=== PATIENT | female | born 1970 | race Hispanic/Latino ===

== ENCOUNTER 2021-10-11 12:54 | Emergency (ER) | payer BC ==
--- OUTSIDE RECORDS SUMMARY | 2021-10-11 12:58 | XMS REPORT | Continuity of Care Document ---
:1970 Author Organization [facility] t Address [address] [place] [address] Care Team Providers Name Role Phone Shanna Cruz Primary Care Physician Nancy Attending Clinician Unavailable Palmer Attending Clinician Unavailable Jacqui RN, T Attending Clinician Unavailable Estuardo MCPHERSON Attending Clinician Unavailable Only, Db Test Attending Clinician Unavailable Slava PATTERSON Attending Clinician SLAVA Attending Clinician Unavailable Payers Payer Name Policy Type Policy Number Effective Date Expiration Date S ource Problems This patient has no known problems. Allergies, Adverse Reactions, Alerts Allergy Allergy Status Severity Reaction(s) Onset Inactive Treating Comm ents Source Name Type Date Date Clinician NO KNOWN Drug Active Univers ALLERGIE Class [facility] Cipro Adverse Active Info Not Common Reaction Available [facility] Social History Social Habit Start Date Stop Date Quantity Comments Source Exposure to Yes [facility] SARS-CoV-2 (event) Medica [facility] Branch Sex Assigned At [birth year] [facility] 00:00:00 00:00:00 [facility] Smoking Status Start Date Stop Date Source Unknown if ever smoked [facility] Medications Ordered Filled Start Stop Current Ordering Indication Dosage Frequency Signature Comments Components Source Medication Medication Date Date Medication? Clinician (SIG) Name Name No known No Univers medications [facility] No known No Univers medications [facility] No known No Univers medications ity [facility] No known No Univers medications ity [facility] No known No Univers medications ity [facility] Daily Multi Daily Multi Yes [place] as Common [place] directed [facility] Vitamin D3 Vitamin D3 Yes Tahira 1 capsule Common [place] [facility] Cyclobenzap Cyclobenzap 2020- No Tahira 1 tablet Common rine HCl rine HCl 12-18 [place] as needed Spirit 00:00 - CHI :00 [facility] Procedures This patient has no known procedures. Encounters Start End Encounter Admission Attending Care Care Encounter Source Date/Time Date/Time Type Type Clinicians Facility Department ID 2021-05-20 Out[place], STLMLC STLMLC [id number] Common 13:43:15 Tahira [address]5831 [facility] 2021-05-20 Outpatient [place], STLMLC STLMLC [id number] Common 12:07:56 Tahira 44504 [facility] 2021-05-20 Outpatient [place], STLMLC STLMLC [id number] Common 12:07:09 Tahira 36322 [facility] 2021-05-20 Outpatient [place], STLMLC STLMLC [id number] Common 11:39:11 Tahira 63589 [facility] 2021-05-20 Outpatient [place], STLMLC STLMLC [id number] Common 11:38:37 Tamra [address]87 [facility] 2020-12-31 2020-12-31 Letter AUGUSTIN Osman [id number] Univers 00:00:00 00:00:00 (Out) Laina TRISTAN [id number] it y of [facility] [id number] Santi as [id number] [address] 2020-12-31 2020-12-31 Telephone AUGUSTIN Marte [id number] Univers 00:00:00 00:00:00 Angelina TRISTAN [id number] it y of [facility] [id number] Santi as [id number] [address] 2020-12-302020-12-30 Laboratory Only, Ang Db Test [facility] [id number] Univers 11:47:13 12:02:13 Only Tan Pedersen [facility] [id number] itciara [facility] [id number] Santi as Jose?Blea [id number] [place] [address] [facility] 2020-12-30 2020-12-30 Outpatient R SLAVA [facility] [id number] Univers 11:45:00 11:45:00 TAN [facility] 2020-12-18 2020-12-18 Outpatient STLMLC STLMLC [id number] Common 00:00:00 00:00:00 [facility] 2020-04-29 2020-04-29 Outpatient STLMLC STLMLC [id number] Common 00:00:00 00:00:00 [facility] 2020-03-18 2020-03-18 Outpatient STLMLC STLMLC [id number] Common 00:00:00 00:00:00 [facility] 2019-12-17 2019-12-17 [facility] [id number] Common 10:00:00 10:00:00 t [facility] [address] [facility] 2019-12-14 2019-12-14 [facility] [id number] Common 14:43:00 14:43:00 t [facility] [employer] [facility] [address] [facility] 2019-12-12 2019-12-12 [facility] [id number] Common 15:20:00 15:20:00 [address] [facility] [address] [facility] 2017-09-20 2017-09-20 [facility] [id number] Common 12:53:00 12:53:[address] [facility] 2017-09-16 2017-09-16 [facility] [id number] Common 13:57:00 13:57:00 t [facility] [address] [facility] 2017-09-14 2017-09-14 [facility] [id number] Common 14:57:00 14:57:00 t [facility] [address] [facility] 2017-09-09 2017-09-09 Outpatient Laith Cristina [id number] Common 10:41:00 10:41:00 t [facility] [address] [facility] 2017-09-06 2017-09-06 Outpatient Laith Cristina [id number] Common 15:30:00 15:30:00 [address] [facility] [address] [facility] Results This patient has no known results.
[2021-10-11] MEDS ORDERED: NA CHLORIDE 0.9% 1,000 ML ONE (13:20)
[2021-10-11] MEDS ORDERED: ONDANSETRON 4 MG/2 ML VIAL ONE (13:20)
[2021-10-11] MEDS ORDERED: MORPHINE 4 MG/ML SYR ONE (13:20)
[2021-10-11 13:33] LABS: Absolute Lymphocytes (CBC) 2.1 K/uL (0.7-4.9); Hematocrit 45.6 % (36.0-45.0); MPV 8.9 fL (7.6-11.3); RBC Red Blood Cell Count 4.99 M/uL (3.86-4.86)
[2021-10-11 13:44] LABS: Albumin 3.4 g/dL (3.4-5.0); Bilirubin Total 0.2 mg/dL (0.2-1.0); Potassium 3.9 mmol/L (3.5-5.1); Protein, Total 6.8 g/dL (6.4-8.2)
[2021-10-11 14:22] LABS: Urine Blood Negative (Negative); Urine Glucose Negative (Negative); Urine Protein Negative (Negative); Urine Specific Gravity 1.025 (1.005-1.030); Urine pH 5.5 (5.0-7.0)
--- NOTE | 2021-10-11 14:37 | RAD REPORT ---
EXAM DESCRIPTION: CTAbdomen Pelvis W Contrast - 10/11/2021 2:24 pm CLINICAL HISTORY: Epigastric pain COMPARISON: Abdomen Pelvis W Contrast dated 01/27/2016 TECHNIQUE: CT of the abdomen and pelvis was performed with IV contrast. All CT scans are performed using dose optimization technique as appropriate and may include automated exposure control or mA/KV adjustment according to patient size. FINDINGS: Lower chest: No acute abnormality. Liver: No acute abnormality or suspicious lesions. Biliary: No biliary ductal dilatation. Stomach: No significant focal abnormality. Duodenum: No significant focal abnormality. Pancreas: No significant abnormality. Spleen: No significant abnormality. Adrenal: No suspicious lesions. Kidney/ureter: No hydronephrosis. No renal calculi. Bilateral renal lesions which are likely cysts. Retroperitoneum: No retroperitoneal adenopathy. Vascular: No aneurysm. Atherosclerosis. Bowel: No significant focal abnormality. No appendix identified. Peritoneum: No ascites or free air. Bladder: Grossly unremarkable. Reproductive: No adnexal masses. Hysterectomy. Bones: No acute fracture. Other: n/a IMPRESSION: No acute intra-abdominal or pelvic finding. A few incidental findings as noted above.
[2021-10-11 14:53] LABS: Urine Bacteria <20 /HPF (<20); Urine RBC NONE SEEN /HPF (NONE SEEN)
--- NOTE | 2021-10-11 15:48 | RAD REPORT ---
EXAM DESCRIPTION: CT - Head Brain Wo Cont - 10/11/2021 3:37 pm CLINICAL HISTORY: Parasthesia COMPARISON: No comparisons TECHNIQUE: All CT scans are performed using dose optimization technique as appropriate and may inclu de automated exposure control or mA/KV adjustment according to patient size. FINDINGS: No intracranial hemorrhage, hydrocephalus or extra-axial fluid collection.No areas of brai n edema or evidence of midline shift. Ethmoid air cell thickening. Mucosal thickening in the right maxillary sinus. The calvarium is intact . IMPRESSION: No acute intracranial abnormality. Mild paranasal sinus inflammatory disease.
--- NOTE | 2021-10-11 15:53 | ER ---
Nurse's Notes [facility] Name: Jie Gonzalez Age: 50 yrs Sex: Female : 1970 Arrival Date: 10/11/2021 Time: 12:57 Bed 6 Private MD: Tahira Cruz Diagnosis: Abdominal pain, unspecified;Diarrhea, unspecified;Paresthesia of skin Presentation: 10/11 13:00 Chief complaint: Patient states: I have been having this abdominal discomfort for 3 jg9 weeks now, last week I had diarrhea x1 week, and the last couple weeks the pain seems to be focused in the RUQ/LLQ region, and reports of tingling in face this morning. Coronavirus screen: Vaccine status: Patient reports being unvaccinated. Ebola Screen: Patient negative for fever greater than or equal to 101.5 degrees Fahrenheit, and additional compatible Ebola Virus Disease symptoms Patient denies exposure to infectious person. Patient denies travel to an Ebola-affected area in the 21 days before illness onset. Initial Sepsis Screen: Does the patient meet any 2 criteria? No. Patient's initial sepsis screen is negative. Does the patient have a suspected source of infection? No. Patient's initial sepsis screen is negative. Risk Assessment: Do you want to hurt yourself or someone else? Patient reports no desire to harm self or others. Onset of symptoms is unknown. 13:00 Method Of Arrival: Ambulatory jg9 13:00 Acuity: EDITH 3 jg9 Triage Assessment: 13:00 General: Appears uncomfortable, Behavior is calm, cooperative. Pain: Complains of pain jg9 in abdomen Pain currently is 5 out of 10 on a pain scale. EENT: No deficits noted. Neuro: No deficits noted. Cardiovascular: No deficits noted. Respiratory: No deficits noted. GI: Reports lower abdominal pain, upper abdominal pain, diarrhea. : No deficits noted. Derm: Reports red patches to upper hands and arms. Musculoskeletal: No deficits noted. 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 - Social history:: Smoking status: Patient reports the use of cigarette tobacco products, denies chronic smoking, but will smoke occasionally. Screenin:11 Abuse screen: Denies threats or abuse. Denies injuries from another. Nutritional jg9 screening: No deficits noted. Tuberculosis screening: No symptoms or risk factors identified. Fall Risk None identified. Assessment: 13:11 GI: Bowel sounds present X 4 quads. Abd is soft Abdomen is tender to palpation X 4 jg9 quads. 14:00 Reassessment: No changes from previously documented assessment. Patient and/or family jg9 updated on plan of care and expected duration. Pain level reassessed. Patient is alert, oriented x 3, equal unlabored respirations, skin warm/dry/pink. 15:15 Reassessment: No changes from previously documented assessment. Patient and/or family jg9 updated on plan of care and expected duration. Pain level reassessed. Patient is alert, oriented x 3, equal unlabored respirations, skin warm/dry/pink. Vital Signs: 13:00 BP 160 / 101; Pulse 98; Resp 20 S; Temp 98(O); Weight 136.08 kg; Height 5 ft. 5 in. jg9 (165.10 cm); Pain 5/10; 13:15 BP 136 / 78; Pulse 76; Resp 17 S; Pulse Ox 97% on R/A; jg9 15:13 BP 154 / 87; Pulse 78; Resp 17 S; Pulse Ox 96% ; jg9 13:00 Body Mass Index 49.92 (136.08 kg, 165.10 cm) jg9 ED Course: 12:57 Patient arrived in ED. as 12:58 Tahira Cruz is Private Physician. as 13:00 Arm band placed on right wrist. jg9 13:01 Soniya Ricci RN is Primary Nurse. jg9 13:02 Luciano Dacosta NP is PHCP. pm1 13:02 Guillermo Camacho MD is Attending Physician. pm1 13:08 Triage completed. jg9 13:09 PHCP role handed off by Luciano Dacosta NP en 13:09 Sita Martínez PA is PHCP. en 13:09 PHCP role handed off by Sita Martínez PA pm1 13:09 Luciano Dacosta NP is PHCP. pm1 13:11 Inserted saline lock: 20 gauge in right antecubital area, using aseptic technique. tp1 Blood collected. 13:11 Placed in gown. Bed in low position. Call light in reach. Side rails up X 1. tp1 13:11 Patient has correct armband on for positive identification. Bed in low position. Call jg9 light in reach. Side rails up X 1. 14:26 CT Abd/Pelvis - IV Contrast Only In Process Unspecified. EDMS 15:39 CT Head Brain wo Cont In Process Unspecified. EDMS 16:22 No provider procedures requiring assistance completed. jg9 16:23 IV discontinued. jg9 Administered Medications: 13:25 Drug: NS 0.9% 1000 ml Route: IV; Rate: 1 bolus; Site: right antecubital; jg9 16:23 Follow up: IV Status: Completed infusion; IV Intake: 1000ml jg9 13:26 Drug: Zofran (Ondansetron) 4 mg Route: IVP; Site: right antecubital; jg9 14:00 Follow up: Response: No adverse reaction jg9 13:28 Drug: morphine 4 mg Route: IVP; Infused Over: 4 mins; Site: right antecubital; jg9 14:00 Follow up: Response: No adverse reaction; Pain is decreased jg9 Medication: 13:11 VIS not applicable for this client. jg9 Intake: 16:23 IV: 1000ml; Total: 1000ml. jg9 Outcome: 15:52 Discharge ordered by MD. pm1 16:22 Discharged to home ambulatory. jg9 16:22 Condition: unchanged 16:22 Discharge instructions given to patient, Instructed on discharge instructions, follow up and referral plans. Demonstrated understanding of instructions, follow-up care, medications, Prescriptions given X 2. 16:24 Patient left the ED. jg9 Signatures: Dispatcher [employer] EDMS Codi Mendoza Patrick, NP SNAKER pm1 Bessie Coronado tp1 Soniya Ricci RN RN jg9 Sita Martínez PA PA en
--- NOTE | 2021-10-11 15:53 | EDPHYS ---
Physician Documentation [facility] Name: Jie Gonzalez Age: 50 yrs Sex: Female : 1970 Arrival Date: 10/11/2021 Time: 12:57 Bed 6 Private MD: Tahira Cruz ED Physician Guillermo Camacho HPI: 10/11 13:25 This 50 yrs old Female presents to ER via Ambulatory with complaints of pm1 Abdominal Pain, Back Pain, Weakness, Diarrhea. 13:25 The patient presents with abdominal pain in the epigastric area, in the upper abdomen. pm1 Onset: The symptoms/episode began/occurred 3 day(s) ago. The symptoms do not radiate. Associated signs and symptoms: Pertinent positives: diarrhea, Right low back pain, increased urination, nausea, Pertinent negatives: dysuria, headache, Generalized weakness, vomiting, chest pain, shortness of breath. The symptoms are described as achy. Modifying factors: The symptoms are alleviated by nothing, the symptoms are aggravated by nothing. Severity of pain: in the emergency department the pain is unchanged. The patient has not experienced similar symptoms in the past. The patient has not recently seen a physician. 50-year-old patient presents to the ER with complaints of abdominal pain, nausea, and diarrhea for the past 3 days. Patient reports decreased p.o. intake of food and liquids and has resulting generalized weakness. 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 - Social history:: Smoking status: Patient reports the use of cigarette tobacco products, denies chronic smoking, but will smoke occasionally. ROS: 13:25 Cardiovascular: Negative for chest pain, palpitations, and edema, Respiratory: Negative pm1 for shortness of breath, cough, wheezing, and pleuritic chest pain. 13:25 MS/Extremity: Negative for injury and deformity, Skin: Negative for injury, rash, and discoloration. 13:25 Constitutional: Positive for poor PO intake, Negative for body aches, fever. 13:25 Abdomen/GI: Positive for abdominal pain, nausea, diarrhea, of the epigastric area, right upper quadrant and left upper quadrant, Negative for vomiting. 13:25 Back: Positive for of the right low back. 13:25 : Positive for Increased urination. 13:25 Neuro: Positive for Generalized weakness. 13:25 All other systems are negative. 13:25 Skin: Positive for rash, of the right hand, left hand and left foot. pm1 Exam: 13:25 Constitutional: This is a well developed, well nourished patient who is awake, alert, pm1 and in no acute distress. Head/Face: Normocephalic, atraumatic. 13:25 Back: No spinal tenderness. No costovertebral tenderness. Full range of motion. MS/ Extremity: Pulses equal, no cyanosis. Neurovascular intact. Full, normal range of motion. 13:25 Cardiovascular: Exam negative for acute changes, Rate: normal, Rhythm: regular, Pulses: no pulse deficits are appreciated. 13:25 Respiratory: Exam negative for acute changes, respiratory distress, shortness of breath. 13:25 Abdomen/GI: Inspection: obese Palpation: soft, in all quadrants, mild abdominal tenderness, in the epigastric area and right upper quadrant. 13:25 Skin: Appearance: normal except for affected area, on the left and right hand and dorsum of left foot, Nonspecific macular rash to dorsal aspect of left hand and left foot. 13:25 Neuro: Exam negative for acute changes, Orientation: is normal, Mentation: is normal, Motor: is normal, moves all fours. Vital Signs: 13:00 BP 160 / 101; Pulse 98; Resp 20 S; Temp 98(O); Weight 136.08 kg; Height 5 ft. 5 in. jg9 (165.10 cm); Pain 5/10; 13:15 BP 136 / 78; Pulse 76; Resp 17 S; Pulse Ox 97% on R/A; jg9 15:13 BP 154 / 87; Pulse 78; Resp 17 S; Pulse Ox 96% ; jg9 13:00 Body Mass Index 49.92 (136.08 kg, 165.10 cm) 9 MDM: 13:05 Patient medically screened. pm1 13:30 Data reviewed: vital signs. Data interpreted: Pulse oximetry: on room air is 97 %. pm1 Interpretation: normal. 15:14 Counseling: I had a detailed discussion with the patient and/or guardian regarding: the pm1 historical points, exam findings, and any diagnostic results supporting the discharge/admit diagnosis, lab results, radiology results, the need for outpatient follow up. 15:14 ED course: Patient reports paresthesia present to right side of her body that has been pm1 going on for 3 days with her diarrhea and generalized weakness. Negative neuro examination. Will order CT head. 16:26 Counseling: I had a detailed discussion with the patient and/or guardian regarding: pm1 radiology results, CT results and need to follow up with a PCP and/GI for further tests and evaluation such as EGD. Patient wanted to be admitted to the hospital for further tests like the EGD and I informed her that she does not meet hospitalization criteria since her CT and labs are negative for acute findings. She was not happy that she feels the same now as she did when she came in and that my explanation to her that we have ruled out multiple differentials and she needs to follow up on an outpatient basis for further work up and diagnosis . 16:51 ED course: Requested Dr. Camacho to talk to the patient but the patient informed the RN pm1 that she is leaving because she is tired of waiting. 10/11 13:11 Order name: CBC with Diff; Complete Time: 14:01 pm1 10/11 13:11 Order name: CMP; Complete Time: 13:47 pm1 10/11 13:11 Order name: Lipase; Complete Time: 13:47 pm10/11 13:11 Order name: Urine Microscopic Only; Complete Time: 14:55 pm1 10/11 13:11 Order name: CT Abd/Pelvis - IV Contrast Only; Complete Time: 14:41 pm10/11 14:23 Order name: Urine Dipstick-Ancillary; Complete Time: 14:24 EDMS 10/11 13:11 Order name: IV Saline Lock; Complete Time: 13:11 pm1 10/11 13:11 Order name: Labs collected and sent; Complete Time: 13:11 pm1 10/11 13:11 Order name: Urine Dipstick-Ancillary (obtain specimen); Complete Time: 14:21 pm1 10/11 13:11 Order name: Urine Test (obtain specimen); Complete Time: 14:21 pm10/11 15:14 Order name: CT Head Brain wo Cont; Complete Time: 15:50 pm1 Administered Medications: 13:25 Drug: NS 0.9% 1000 ml Route: IV; Rate: 1 bolus; Site: right antecubital; jg9 16:23 Follow up: IV Status: Completed infusion; IV Intake: 1000ml jg9 13:26 Drug: Zofran (Ondansetron) 4 mg Route: IVP; Site: right antecubital; jg9 14:00 Follow up: Response: No adverse reaction jg9 13:28 Drug: morphine 4 mg Route: IVP; Infused Over: 4 mins; Site: right antecubital; jg9 14:00 Follow up: Response: No adverse reaction; Pain is decreased jg9 Disposition Summary: 10/11/21 15:52 Discharge Ordered Location: Home pm1 Problem: new pm1 Symptoms: have improved pm1 Condition: Stable pm1 Diagnosis - Abdominal pain, unspecified pm1 - Diarrhea, unspecified pm1 - Paresthesia of skin pm1 Followup: pm1 - With: Emergency Department - When: As needed - Reason: Worsening of condition Followup: pm1 - With: Private Physician - When: 2 - 3 days - Reason: Recheck today's complaints, Continuance of care, Re-evaluation by your physician Discharge Instructions: - Discharge Summary Sheet pm1 - Abdominal Pain, Adult pm1 - Food Choices to Help Relieve Diarrhea, Adult pm1 - Diarrhea, Adult pm1 - Paresthesia pm1 - Weakness pm1 Forms: - Medication Reconciliation Form pm1 - Thank You Letter pm1 - Antibiotic Education pm1 - Prescription Opioid Use pm1 Prescriptions: - Zofran 4 mg Oral Tablet - take 1 tablet by ORAL route every 12 hours As needed; 20 tablet; Refills: 0, pm1 Product Selection Permitted - dicyclomine 20 mg Oral Tablet - take 1 tablet by ORAL route 4 times per day As needed; 20 tablet; Refills: 0, pm1 Product Selection Permitted Signatures: Dispatcher [employer] Luciano Elliott NP INFORMATION SERVICES CONSULTANT pm1 Soniya Ricci RN RN jg9 Corrections: (The following items were deleted from the chart) 13:30 13:25 Skin: Appearance: normal except for affected area, on the left hand and dorsum of pm1 left foot, Nonspecific macular rash to dorsal aspect of left hand and left foot, pm1
[2021-10-11 16:29] VITALS: TEMP 98
[2021-10-11 16:31] VITALS: BP 154/87; O2SAT 96
== END 2021-10-11 16:24 | disposition home or self-care (01) ==
LOC: ER 12:54
DX: R19.7 Diarrhea, unspecified (principal); R20.2 Paresthesia of skin; R53.1 Weakness
CPT/HCPCS: 85025; 36415; 83690; 80053; 70450; 74177; Q9967; J7030; J2405; 81003; 81015

== ENCOUNTER 2024-04-09 11:55 | Inpatient (IN) | payer BC, OTHER, SELFPAY ==
--- OUTSIDE RECORDS SUMMARY | 2024-04-09 11:59 | XMS REPORT | Continuity of Care Document ---
Author Name Unknown Address [address] [facility] [address] [phone] [facility] [address] [facility] [address] 1 [phone] Care Team Providers [place] Name Role Phone PCP, PATIENT DOES NOT HAVE A Primary Care Physic katie Unavailable Tahira Cruz Attending Clinician Unavailable Tamra Chakraborty Attending Clinician Unavailable DAVID MCKEON Attending Clinician Unavailable BRIEN VAUGHN Attending Clinician UnaSHIRLEY Lehman Attending Clinician Unavailable ROSA NANCE Attending Clinician Unavailable ROSA NANCE Attending Clinician Unavailable Rosa Nance NP Attending Clinician [phone] RADIOLOGY Attending Clinician Unavailable Radiology Attending Clinician Unavailable SYLVIA GRIMES Attending Clinician Unavailab Sylvia Martinez MD Attending Clinician [phone] LAB90 Attending Clinician Unavailable Only, Ang Db Test Attending Clinician Unavailabl e Unknown, Attending Attending Clinician Unavailab angel PEDERSEN TAN Attending Clinician Unavailable Doctor Unassigned, [place] Attending Clinician U mihai Pedersen MD, Tan Attending Clinician Jacqui MCPHERSON, Laina Dias Attending Clinician Maite Waterman RN, Angelina Attending Clinician Unavailable ROSA NANCE Admitting Clinician Unavailable BRIEN VAUGHN Admitting Clinician Unavailable SYLVIA GRIMES Admitting Clinician Unavail le Payers Payer Name Policy Type Policy Number Effective Date Expirati on Date Source [facility] 2 [id number] 2023 00:00:00 [employer]-90 DEGREE BENEFIT 2 [id number] 2023 00:00:00 TSHBP 90 DEGREE AND BENEFITS [id number] 2022 00:00:00 Blue Cross [place] [employer] of [place] C1 [id number] [facility] Problems Condition Name Condition Details Condition Category Status Onset Date Resolution Date Last Treatment Date Treating Clinician Comments Source Current moderate episode of major depressive disorder without prior episode Current moderate episode of major depressive disorder without prior episode Disease Active 01-16 00:00: 00 Leslee Seybold - Externa l Lipoma Lipoma Problem Active [facility] Gastroesop hageal reflux disease GERD without esophagiti s Problem Active [facility] [id number] Morbid obesity Problem Active [facility] [id number] Fatty liver Problem Active [facility] [id number] Paresthesi as Problem Active [facility] [id number] Generalize d edema Problem Active [facility] Peptic ulcer disease Peptic ulcer disease Problem Active [facility] [id number] Essential hypertensi on Problem Active [facility] Kidney stone Kidney stones Problem Active [facility] [id number] Body mass index (BMI) 50.0-59.9, adult Problem Active [facility] [id number] Pain of left calf Problem Active [facility] [id number] Morbid (severe) obesity due to excess calories Problem Active [facility] Allergies, Adverse Reactions, Alerts Allergy Name Allergy Type Status Severity Reaction(s) Onset Date Inactive Date Treating Clinician Comments Source NO KNOWN ALLERGIE S Drug Class Active [facility] ciproflo xacin ciproflo xacin Active Unknown [facility] Social History Social Habit Start Date Stop Date Quantity Comments Source History of tobacco use Cigarette Smoker Leslee segura - External ASSERTION Not Leslee Maza - External Sexual orientation K vanda Maza - External Gender identity [facility] Exposure to SARS-CoV-2 (event) Yes [facility] Alcoholic beverage intake 2024-01-17 00:00:00 2024-01-17 00:00:00 Current drinker of alcohol (finding) Leslee Maza - External History of Social function 2024-01-17 00:00:00 2024-01-17 00:00:00 Leslee Maza - External Sex 2023-06-14 07:37:52 2023-06-14 07:37:52 Female (finding) Leslee Maza - External Alcohol intake 2023-06-14 00:00:00 2023-06-14 00:00:00 Current drinker of alcohol (finding) Leslee Maza - External Alcohol Comment 2023-06-14 00:00:00 2023-06-14 00:00:00 SOCIALLY Leslee Maza - External Sex assigned at 1970 00:00:00 1970 00:00:00 Leslee Maza - External Smoking Status Start Date Stop Date Source Tobacco smoking consumption unknown [facility] Occasional tobacco smoker 2023-06-14 00:00:00 Leslee Maza - External Never Smoker [facility] Medications Ordered Medication Name Filled Medication Name Start Date Stop Date Current Medication? Ordering Clinician Indication Dosage Frequency Signature (SIG) Comments Components Source Ibuprofen (MOTRIN) 600 MG oral Tablet 01-16 08:52: 41 Yes TAKE ONE (1) TABLET BY MOUTH EVERY 6 (SIX) HOURS NEEDED FOR PAIN. Leslee Becker Externa l Bupropion HCL XL 150 MG OR TB24 01-16 00:00: 00 Yes [id number] 150mg QD Take 1 tablet (150 mg total) by mouth daily. Leslee Link ortega Trazodone HCl 50 MG oral Tablet 01-16 00:00: 00 Yes [id number] 50mg QD Take 1 tablet (50 mg total) by mouth nightly. Leslee Link ortega ibuprofen (IBU) tablet 800 mg 12-22 22:45: 00 12-22 23:22 :00 No 800mg 800 mg, Oral, ONCE, 1 dose, On Tue12/23/23 at 1745, YAZAN [facility] ibuprofen 600 mg tablet 12-22 00:00: 00 Yes [id number] 600mg Take 1 tablet by mouth every 6 (six) hours as needed for Pain (scale 4-6) or Pain (scale 1-3). [facility] iopamidol (ISOVUE 370-500 mL) injection 80 mL 12-13 19:30: 00 12-13 19:45 :00 No [id number] 80mL 80 mL, Intravenou s, ONCE, 1 dose, On Tue12/14/23 at 1445, Routine [facility] albuterol (PROVENTIL) 2.5 mg /3 mL (0.083 %) nebulizer solution 2.5 mg 12-13 19:00: 00 12-13 19:13 :00 No 2.5mg 2.5 mg, Inhalation , ONCE, 1 dose, On Tue12/14/23 at 1400, STAT [facility] morpHINE (4 mg/mL) injection 4 mg 12-13 19:00: 00 12-13 19:00 :00 No 4mg 4 mg, Slow IV Push, ONCE, 1 dose, On Tue12/14/23 at 1400, STAT [facility] benzonatate (TESSALON PERLES) capsule 100 mg 12-13 18:30: 00 12-13 17:57 :00 No 100mg 100 mg, Oral, ONCE, 1 dose, On Tue12/14/23 at 1330, Routine [facility] methocarbam oL (ROBAXIN) injection 1,000 mg 12-13 18:15: 00 12-13 18:07 :00 No 1000mg 1,000 mg, Slow IV Push, Administer over 3-5 Minutes, ONCE, 1 dose, On Tue12/14/23 at 1315, Routine [facility] dexamethaso ne sod phos PF injection 10 mg 12-13 17:30: 00 12-13 17:58 :00 No 10mg 10 mg, Slow IV Push, ONCE, 1 dose, On Tue12/14/23 at 1230, 1 mL [facility] albuterol (PROVENTIL) 2.5 mg /3 mL (0.083 %) nebulizer solution 2.5 mg 12-13 17:30: 00 12-13 17:58 :00 No 2.5mg 2.5 mg, Inhalation , ONCE, 1 dose, On Tue12/14/23 at 1230, STAT [facility] famotidine (PEPCID (PF)) injection 20 mg 12-13 17:30: 00 12-13 17:58 :00 No 20mg 20 mg, Slow IV Push, ONCE, 1 dose, On Tue12/14/23 at 1230, YAZAN [facility] diphenhydrA MINE:lidoca ine 2% viscous:maa lox 1:1:1 (FIRST-MOUT HWASH BLM) oral suspension 15 mL 12-13 17:30: 00 12-13 17:58 :00 No 15mL 15 mL, Oral, ONCE, 1 dose, On Tue12/14/23 at 1230, Routine [facility] Albuterol HFA 108 (90 Base) MCG/ACT IN AERS 12-13 00:00: 00 Yes 2{puff} Q4H Inhale 2 puffs into the lungs every 4 hours as needed. Leslee ortega methylPREDN ISolone 4 mg tablets 12-13 00:00: 00 12-22 00:00 :00 No [id number] 6 Take by mouth SEE-INSTRU CTIONS. follow package directions [facility] Cholecalcif leena (Vitamin D3) 25 MCG (1000 UT) oral Capsule 12-12 15:00: 26 12-12 00:00 :00 No 1{capsu le} 1 capsule by other route. Leslee ortega Atorvastati n Calcium 20 MG oral Tablet 12-12 15:00: 12-12 00:00 :00 No TAKE 1 TABLET BY MOUTH AT BEDTIME for 90 Leslee ortega Amoxicillin -Pot Clavulanate 875-125 MG oral Tablet 06-14 00:00: 00 12-12 00:00 :00 No [id number] 1{tbl} Q.5D Take 1 tablet by mouth 2 times daily. Leslee ortega Guaifenesin (Mucinex) 600 MG oral Tablet 12 Hour Sustained Release 06-14 00:00: 00 12-12 00:00 :00 No [id number] 1200mg Q.5D Take 2 tablets (1,200 mg total) by mouth 2 times daily. Leslee ortega Pseudoeph-B romphen-DM 30-2-10 MG/5ML oral Syrup 06-14 00:00: 00 12-12 00:00 :00 No [id number] 10mL Q.25D Take 10 mL by mouth 4 times daily as needed. Leslee ortega Nystatin-Tr iamcinolone 580547-8.1 UNIT/GM Nystatin-Tr iamcinolone [id number] UNIT/GM 7- 00:00: 00 11-22 00:00 :00 No 1{appli cation} BID Nystatin-T riamcinolo ne 046838-0.1 UNIT/GM Triamcinolo ne Acetonide 0.1 % Triamcinolo ne Acetonide 0.1 % -24 00:00: 00 No 1{appli cation} BID Triamcinol one Acetonide 0.1 % Triamcinolo ne Acetonide 0.1 % Triamcinolo ne Acetonide 0.1 % 6-24 00:00: 00 No 1{appli cation} BID Triamcinol one Acetonide 0.1 % hydroCHLORO thiazide 12.5 MG hydroCHLORO thiazide 12.5 MG 12-16 00:00: 00 No 1{capsu le_in_t he_morn ing} QD hydroCHLOR Othiazide 12.5 MG hydroCHLORO thiazide 12.5 MG hydroCHLORO thiazide 12.5 MG 12-16 00:00: 00 No 1{capsu le_in_t he_morn ing} QD hydroCHLOR Othiazide 12.5 MG Daily Multi Daily Multi Yes Tahira [place] as directed [facility] Vitamin D3 Vitamin D3 Yes Tahira [place] 1 capsule [facility] Daily Multi - Daily Multi - No Daily Multi - Daily Multi - Daily Multi - No Daily Multi - Vitamin D3 25 MCG (1000 UT) Vitamin D3 25 MCG (1000 UT) No 1{capsu le} QD Vitamin D3 25 MCG (1000 UT) Daily Multi - Daily Multi - No Daily Multi - Vitamin D3 25 MCG (1000 UT) Vitamin D3 25 MCG (1000 UT) No 1{capsu le} QD Vitamin D3 25 MCG (1000 UT) No known medications No Un scar ity [facility] No known medications No Un scar ity [facility] No known medications No Un scar ity [facility] No known medications No Un scar ity [facility] No known medications No Un scar ity [facility] Cyclobenzap rine HCl Cyclobenzap rine HCl 12-18 00:00 :00 No Tahira [place] 1 tablet as needed [facility] Vital Signs Vital Name Observation Time Observation Value Comments S ourjoslyn Systolic blood pressure 2024-01-17 13:47:00 130 mm[Hg] Leslee bonilla - External Diastolic blood pressure 2024-01-17 13:47:00 80 mm[Hg] Leslee bonilla - External Heart rate 2024-01-17 13:47:00 101 /min Martha Maza - External Body temperature 2024-01-17 13:47:00 35.83 Anuradha Leslee Maza - External Respiratory rate 2024-01-17 13:47:00 16 /min Leslee Maza - External Body height 2024-01-17 13:47:00 165.1 cm Lorraine ey ybold - External Body weight 2024-01-17 13:47:00 150.594 kg Lorraine ey ybold - External BMI 2024-01-17 13:47:00 55.25 kg/m2 Lorraine ey ybold - External Systolic blood pressure 2023-12-24 00:09:00 149 mm[Hg] [facility] Diastolic blood pressure 2023-12-24 00:09:00 94 mm[Hg] [facility] Heart rate 2023-12-24 00:09:00 82 /min Unive [facility] Body temperature 2023-12-24 00:09:00 36.67 Anuradha [facility] Respiratory rate 2023-12-24 00:09:00 16 /min [facility] Oxygen saturation in Arterial blood by Pulse oximetry 2023-12-24 00:09:00 95 /min [facility] Body height 2023-12-23 22:32:00 165.1 cm [facility] Body weight 2023-12-23 22:32:00 150.594 kg [facility] BMI 2023-12-23 22:32:00 55.25 kg/m2 [facility] Heart rate 2023-12-14 20:42:00 88 /min Unive [facility] Body temperature 2023-12-14 20:42:00 36.56 Anuradha [facility] Respiratory rate 2023-12-14 20:42:00 19 /min [facility] Oxygen saturation in Arterial blood by Pulse oximetry 2023-12-14 20:42:00 95 /min [facility] Systolic blood pressure 2023-12-14 20:00:00 148 mm[Hg] [facility] Diastolic blood pressure 2023-12-14 20:00:00 87 mm[Hg] [facility] Body height 2023-12-14 16:46:00 165.1 cm [facility] Body weight 2023-12-14 16:46:00 150.594 kg [facility] BMI 2023-12-14 16:46:00 55.25 kg/m2 [facility] Systolic blood pressure 2023-12-13 21:26:00 124 mm[Hg] Leslee Seybo ld - External Diastolic blood pressure 2023-12-13 21:26:00 82 mm[Hg] Leslee ybo ld - External Heart rate 2023-12-13 21:26:00 100 /min Kelse y Seybold - External Body temperature 2023-12-13 21:26:00 37.06 Anuradha Leslee Seybold - External Respiratory rate 2023-12-13 21:26:00 20 /min Leslee Seybold - External Body height 2023-12-13 21:26:00 165.1 cm Lorraine ey Seybold - External Body weight 2023-12-13 21:26:00 151.672 kg Lorraine ey Seybold - External BMI 2023-12-13 21:26:00 55.64 kg/m2 Lorraine ey Seybold - External Oxygen saturation in Arterial blood by Pulse oximetry 2023-12-13 21:26:00 97 /min Leslee Seybo ld - External Systolic blood pressure 2023-06-14 15:54:00 130 mm[Hg] Leslee Seybo ld - External Diastolic blood pressure 2023-06-14 15:54:00 80 mm[Hg] Leslee ybo ld - External Heart rate 2023-06-14 15:54:00 104 /min Kelse y Seybold - External Body temperature 2023-06-14 15:54:00 36.06 Anuradha Leslee Seybold - External Respiratory rate 2023-06-14 15:54:00 15 /min Leslee Seybold - External Body height 2023-06-14 15:54:00 165.1 cm Lorraine ey Seybold - External Body weight 2023-06-14 15:54:00 141.976 kg Lorraine ey Seybold - External BMI 2023-06-14 15:54:00 52.09 kg/m2 Lorraine ey Seybold - External Oxygen saturation in Arterial blood by Pulse oximetry 2023-06-14 15:54:00 96 /min Leslee Seybo ld - External height 2021-10-15 15:20:00 64.50 [in_i] Com mon [facility] weight 2021-10-15 15:20:00 295 [lb_av] Comm on [facility] bmi 2021-10-15 15:20:00 49.85 kg/m2 Comm on [facility] height 2020-12-18 13:40:00 64.50 [in_i] Com mon [facility] weight 2020-12-18 13:40:00 294 [lb_av] Comm on [facility] temperature 2020-12-18 13:40:00 97.5 [degF] Com mon [facility] bmi 2020-12-18 13:40:00 49.68 kg/m2 Comm on [facility] oximetry 2020-12-18 13:40:00 96 % Commo n [facility] respiratory rate 2020-12-18 13:40:00 16 /min [facility] blood pressure systolic 2020-12-18 13:40:00 118 mm[Hg] [facility] blood pressure diastolic 2020-12-18 13:40:00 67 mm[Hg] [facility] Procedures Procedure Date / Time Performed Performing Clinicia n Source CT CHEST PULMONARY ANGIOGRAM 2023-12-14 19:44:04 Sylvia Grimes [facility] TROPONIN I 2023-12-14 18:57:00 Sylvia Grimes Un [facility] URINALYSIS 2023-12-14 17:57:00 Sylvia Grimes Un [facility] XR CHEST 1 VW 2023-12-14 17:14:13 [facility]23[facility]12[facility]14 17:06[facility]00 [facility]14 17:06[facility]00 [facility] 2023-12-14 17:06:00 Sylvia Grimes Un [facility] COMP. METABOLIC PANEL ([id number]) 2023-12-14 17:06:00 Sylvia Grimes [facility] CBC WITH DIFF 2023-12-14 17:06:00 Sylvia Grimes U [facility] INFLUENZA A/B RSV COVID NAAT 2023-12-14 17:06:00 Sylvia Grimes [facility] N-TERMINAL PRO-BNP 2023-12-14 17:06:00 Peg Grimes [facility] HB ECG ROUTINE & RHYTHM STRIP 2023-12-14 16:49:02 Sylvia Grimes [facility] Encounters Start Date/Time End Date/Time Encounter Type Admission Type Attending [facility] Facility Care Department Encounter ID Source 2021-10-13 09:17:00 Outpatient Tahira [facility] [id number] [facility] 2021-05-20 13:43:15 Outpatient Tahira Cruz [facility] [id number] [facility] 2021-05-20 12:07:56 Outpatient Tahira Cruz [facility]DRAL[facility] [id number] [facility] 2021-05-20 12:07:09 Outpatient Tahira Cruz STLMLC ST[facility] [id number] [facility] 2021-05-20 11:39:11 Outpatient Tahira Cruz [facility]DRAL[facility] [id number] [facility] 2021-05-20 11:38:37 Outpatient Tamra Chakraborty [facility] [id number] [facility] 2024-02-28 09:30:00 2024-02-28 09:30:00 Outpatient DAVID MCKEON [id number] Leslee Maza 2024-01-17 09:00:00 2024-01-17 09:00:00 Outpatient DAVID MCKEON [id number] Leslee Maza 2023-12-27 00:00:00 2023-12-27 00:00:00 Outpatient BRIEN VAUGHN LESLEE [id number] Leslee Maza 2023-12-27 00:00:00 2023-12-27 00:00:00 Outpatient SHIRLEY MARQUES LESLEE [id number] Leslee Maza 2023-12-23 17:34:00 2023-12-23 19:14:00 Emergency X DRELOLI UGARTELOLI GALVANALA [facility] ERT [id number] [facility] 2023-12-23 17:34:00 2023-12-23 19:14:00 Emergency YaakovRosa Darlene [facility] [id number] [id number] [id number] [id number] [facility] 2023-12-23 17:34:00 2023-12-23 19:14:00 Emergency X ROSA NANCE, ROSA [facility] ERT [id number] [facility] 2023-12-14 16:01:32 2023-12-14 23:59:00 Outpatient R RADIOLOGY [facility] [id number] [facility] 2023-12-14 16:00:00 2023-12-14 23:59:00 Hospital Encounter Radiology Radiology [facility] [id number] 350.1.13.10 [id number] [id number] [facility] 2023-12-14 11:37:00 2023-12-14 15:49:00 Emergency X SYLVIA GRIMES [facility] ERT [id number] [facility] 2023-12-14 11:37:00 2023-12-14 15:49:00 Emergency Sylvia Grimes [facility] [id number] 350.1.13.10 [id number] [id number] [facility] 2023-12-14 09:15:00 2023-12-14 09:15:00 Outpatient LAB90 LESLEE LESLEE [id number] [facility] 2023-12-13 16:30:00 2023-12-13 16:30:00 Outpatient BRIEN VAUGHN LESLEE LESLEE [id number] Leslee [facility] 2023-06-14 10:00:00 2023-06-14 10:00:00 Outpatient DAVID MCKEON LESLEE GUERRIER [id number] [facility] 2022-12-20 18:45:00 2022-12-20 19:00:00 Laboratory Only Only, Ang Db Test Unknown, Attending [facility] [id number] 350.1.13.10 4.2.7.2.686 [id number] [facility] 2022-12-20 18:45:00 2022-12-20 18:33:03 Outpatient TAN CHINCHILLA [facility] [id number] [facility] 2022-12-20 00:00:00 2022-12-20 00:00:00 Letter (Out) Doctor Unassigned, [place] [facility] [id number] 350.1.13.10 4.2.7.2.686 [id number] [facility] 2022-12-20 00:00:00 2022-12-20 00:00:00 Letter (Out) Tan Pedersen [facility] [id number] 350.1.13.10 4.2.7.2.686 [id number] [facility] 2021-10-16 00:00:00 2021-10-16 00:00:00 [facility] [id number] 2021-10-15 00:00:00 2021-10-15 00:00:00 OFFICE VISIT EST PT LEVEL [address] [facility] [facility] [id number] [facility] 2020-12-31 00:00:00 2020-12-31 00:00:00 Letter (Out) JacquiLaina mejias [facility] [id number] 350.1.13.10 4.2.7.2.686 [id number] [facility] 2020-12-31 00:00:00 2020-12-31 00:00:00 Telephone EstuardoAngelina [facility] [id number] 350.1.13.10 4.2.7.2.686 [id number] [facility] 2020-12-30 11:47:13 2020-12-30 12:02:13 Laboratory Only Only, Ang Tan Hassan [facility] [id number] 350.1.13.10 4.2.7.2.686 [id number] [facility] 2020-12-30 11:45:00 2020-12-30 11:45:00 Outpatient TAN CHINCHILLA [facility] [id number] [facility] 2020-12-18 00:00:00 2020-12-18 00:00:00 OFFICE VISIT ESTAB PT LEVEL 1 STLMLC STLMLC [id number] [facility] 2020-04-29 00:00:00 2020-04-29 00:00:00 Outpatient STLMLC [facility] [id number] [facility] 2020-03-18 00:00:00 2020-03-18 00:00:00 Outpatient STLMLC [facility] [id number] [facility] 2019-12-17 10:00:00 2019-12-17 10:00:00 Outpatient [facility] [id number] [facility] 2019-12-14 14:43:00 2019-12-14 14:43:00 Outpatient Laith [facility] [id number] [facility] 2019-12-12 15:20:00 2019-12-12 15:20:00 Outpatient [facility] [id number] [facility] 2017-09-20 12:53:00 2017-09-20 12:53:00 Outpatient [facility] [id number] [facility] 2017-09-16 13:57:00 2017-09-16 13:57:00 Outpatient [facility] [id number] [facility] 2017-09-14 14:57:00 2017-09-14 14:57:00 Outpatient [facility] [id number] [facility] 2017-09-09 10:41:00 2017-09-09 10:41:00 Outpatient [facility] [id number] [facility] 2017-09-06 15:30:00 2017-09-06 15:30:00 Outpatient [facility] [id number] [facility] Results Test Description Test Time Test Comments Results Result Comments Source CT CHEST PULMONARY ANGIOGRAM 19:51:28 HISTORY: Rule out P.E. TECHNIQUE: Contrast-enhanced 64-mutidetector CT scan of the chest wascompleted with intravenous injection of ?non ionic contrast medium.Subsequently numerous sagittal, coronal and MIP reformations weregenerated. FINDINGS: No acute pulmonary thromboembolism detected. Trachea and central bronchial airways appear normal. No enlarged lymphnodes are seen in the hrai or the mediastinum. No aortic aneurysm or aorticdissection. Minimal focal atherosclerosis is noted in proximal LAD coronaryartery. No lung nodules. Minimal groundglass hazy changes are seen in the anteriorbasal left lower lung. Mild thoracic dextroscoliosis and lower thoracic/upper lumbar degenerativespondylosis noted. No acute bony pathology. Soft tissues of the chest wallappear normal. Visualized upper abdominal organs are unremarkable. CONCLUSIONS:1. No acute pulmonary thromboembolism.2. Minimal groundglass hazy changes in the left lower lung, borderlinefinding for reactive airway disease. [id number]:27:25* Test Item Value Reference Range Interpretation Comme nts TROPONIN I (test code = [id number]) 0.005 ng/mL <=0.034 KARL (test code = KARL) Reference (Normal) Range (defined by the 99th percentile reference limit): <= 0.034 ng/mL Note: Cardiac troponin begins to rise 3-4 hours after the onset of ischemia. Repeat in 4-6 hours if the sample was drawn within 3-4 hours of the onset of the symptom and found normal. Diagnosis of myocardial injury is made with acute changes in cTn concentrations with at least one serial sample above the 99th percentile upper reference limit (URL), taken together with the patient's clinical presentation. Biotin has been reported to cause a negative bias, interpret results relative to patient's use of biotin. Lab Interpretation (test code = 61909-8) [id number] 18:19:20* Test Item Value Reference Range Interpretation Comme nts NT-proBNP (test code = 91805-9) <=125 Lab Interpretation (test cod e = 12533-8) [facility]2024-[facility] 18:09:11* Test Item Value Reference Range Interpretation Comme nts MAGNESIUM (test code = 7296219386) 2.1 mg/dL 1.7-2.4 Lab Interpretation (test cod e = 64011-7) [facility]OL[facility] PAN[facility] (98725)2023-12-14 18:08:56* Test Item Value Reference Range Interpretation Comme nts NA (test code = 0661686171) 140 mmol/L 135-145 K (test code = 4550314598) 3.9 mmol/L 3.5-5.0 CL (test code = 1157668781) 104 mmol/L 98-108 CO2 TOTAL (test code = 2924068158) 28 mmol/L 23-31 AGAP (test code = 8737674299) 8 2-16 BUN (test code = 0385987520) 12 mg/dL 7-23 GLUCOSE (test code = 9442944330) 157 mg/dL 70-110 H CREATININE (test code = 2160-0) 0.87 mg/dL 0.50-1.04 TOTAL BILI (test code = 6883116303) 0.9 mg/dL 0.1-1.1 CALCIUM (test code = 6708915366) 9.2 mg/dL 8.6-10.6 T PROTEIN (test code = 1967732908) 7.4 g/dL 6.3-8.2 ALBUMIN (test code = 4805018285) 4.1 g/dL 3.5-5.0 ALK PHOS (test code = 3645353260) 81 U/L 34-122 ALTv (test code = 1742-6) 26 U/L 5-35 AST(SGOT) (test code = 6113150117) 32 U/L 13-40 eGFR (test code = 65116-6) 80.3 mL/min/1.73m2 CKD-EPI eGFR (2020). Assuming creatinine has been stable day-to-day for at least three months, the eGFR indicates Category G2 (60 - 89 mL/min/1.73 m2) Lab Interpretation (test code = 24568-3) Abnormal [facility] 18:08:56* Test Item Value Reference Range Interpretation Comme nts LIPASE (test code = 3773791427) 117 U/L 0-220 Lab Interpretation (test cod e = 30419-5) Normal [facility] WITH [id number] 17:56:31* Test Item Value Reference Range Interpretation Comme nts WBC (test code = 6690-2) 7.83 4.30-11.10 RBC (test code = 789-8) 5.03 3.93-5.25 HGB (test code = 718-7) 16.0 g/dL 11.6-15.0 H HCT (test code = 4544-3) 47.7 % 35.7-45.2 H MCV (test code = 787-2) 94.8 fL 80.6-95.5 MCH (test code = 785-6) 31.8 pg 25.9-32.8 MCHC (test code = 786-4) 33.5 g/dL 31.6-35.1 RDW-SD (test code = 70198-3) 45.2 fL 39.0-49.9 RDW-CV (test code = 788-0) 13.0 % 12.0-15.5 PLT (test code = 777-3) 291 166-358 MPV (test code = 44292-5) 10.7 fL 9.5-12.9 NRBC/100 WBC (test code = 4981127483) 0.0 0.0-10.0 NRBC x10^3 (test code = 5647942574) See_Comment [Automated messa ge] The system which generated this result transmitted reference range: 10*3/?L. The reference range was not used to interpret this result as normal/abnormal. GRAN MAT (NEUT) % (test code = 770-8) 63.5 % IMM GRAN % (test code = 9173253301) 0.30 % LYMPH % (test code = 736-9) 25.2 % MONO % (test code = 5905-5) 5.5 % EOS % (test code = 713-8) 4.5 % BASO % (test code = 706-2) 1.0 % GRAN MAT x10^3(ANC) (test code = 9698725415) 4.98 10*3/uL 1.88-7.09 IMM GRAN x10^3 (test code = 1460046540) 0.00-0.06 LYMPH x10^3 (test code = 731-0) 1.97 10*3/uL 1.32-3.29 MONO x10^3 (test code = 742-7) 0.43 10*3/uL 0.33-0.92 EOS x10^3 (test code = 711-2) 0.35 10*3/uL 0.03-0.39 BASO x10^3 (test code = 704-7) 0.08 10*3/uL 0.01-0.07 H Lab Interpretation (test code = 61759-0) Abnormal [facility] 1 [id number] 17:15:11HISTORY: Chest pain. TECHNIQUE: Portable AP view of the chest is obtained. No prior chest studyavailable for comparison. FINDINGS: No acute pneumonia. No pneumothorax or pleural effusion detected.Mild prominence of central and bibasilar pulmonary vascularity notedwithout onesimo interstitial pulmonary edema. Cardiac size is within normallimits. CONCLUSIONS: No signs of acute cardiopulmonary disease. [facility]
[2024-04-09] MEDS ORDERED: AZITHROMYCIN 250 MG TAB ONE (12:23)
[2024-04-09 12:54] LABS: SARS-CoV-2 Antigen CONTROL BLUE LINE VIS/BG OK; SARS-CoV-2 Antigen Rapid Res Negative (Negative)
[2024-04-09] MEDS ORDERED: IPRATROPIUM BROM 0.5MG/2.5ML ONE (13:12)
[2024-04-09] MEDS ORDERED: ONDANSETRON 4 MG/2 ML VIAL ONE (13:12)
[2024-04-09] MEDS ORDERED: dexAMETHasone 10 MG/ML VIAL ONE (13:12)
[2024-04-09] MEDS ORDERED: LEVALBUTEROL 1.25 MG/3 ML NEB ONE ×2 (13:12→15:35)
[2024-04-09] MEDS ORDERED: NA CHLORIDE 0.9% 1,000 ML ONE (13:13)
[2024-04-09 14:15] LABS: Absolute Eosinophils 0.2 K/uL (0-0.5); Absolute Lymphocytes (CBC) 1.3 K/uL (0.7-4.9); Absolute Monocytes 0.5 K/uL (0.1-1.3); Absolute Neutrophil 2.4 K/uL (1.8-8.0); Basophils % 0.8 % (0-1.3); Eosinophils % 3.5 % (0-4.4); Hematocrit 48.7 % (36.0-45.0); Hemoglobin 16.4 g/dL (12.0-15.0); Lymphocytes % 29.2 % (15.3-44.8); MCH 31.6 pg (27.0-35.0); MCHC 33.6 g/dL (32.0-36.0); MPV 8.8 fL (7.6-11.3); Monocytes % 10.6 % (3.3-12.3); Neutrophils % 55.9 % (41.7-73.7); Nucleated Red Blood Cells % 0.2 % (0-0); Platelets 199 thou/uL (152-406); RBC Red Blood Cell Count 5.18 M/uL (3.86-4.86); Red Cell Distribution Width 13.2 % (12.1-15.2)
--- NOTE | 2024-04-09 14:19 | EDPHYS ---
Physician Documentation [facility] Name: Jie Gonzalez Age: 53 yrs Sex: Female : 1970 Arrival Date: 04/09/2024 Time: 11:55 Bed 8 Private MD: ED Physician Eric Moss HPI: 04/09 14:10 This 53 yrs old Female presents to ER via Wheelchair with complaints of Flu bird Symptoms. 14:10 The patient has shortness of breath at rest, with light activity. Onset: The bird symptoms/episode began/occurred 5 day(s) ago. Duration: The symptoms are continuous, and are steadily getting worse. The patient's shortness of breath is aggravated by coughing, light activity, is alleviated by rest, sitting up. The patient or guardian reports airway noise, cough, described as moderate, difficulty breathing. Modifying factors: The symptoms are alleviated by changing position, remaining still, the symptoms are aggravated by activity, lying flat. Associated signs and symptoms: Pertinent positives: non-productive cough, fever. Severity of symptoms: At their worst the symptoms were mild in the emergency department the symptoms are unchanged. The patient or guardian reports flu symptoms, hoarse voice. 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 - Infectious Disease History:: Denies. - Social history:: Smoking status: Patient reports the use of cigarette tobacco products, denies chronic smoking, but will smoke occasionally. - Family history:: not pertinent. ROS: 14:10 Eyes: Negative for injury, pain, redness, and discharge, ENT: Negative for injury, bird pain, and discharge, Neck: Negative for injury, pain, and swelling, Cardiovascular: Negative for chest pain, palpitations, and edema, Abdomen/GI: Negative for abdominal pain, nausea, vomiting, diarrhea, and constipation, Back: Negative for injury and pain, : Negative for injury, bleeding, discharge, and swelling, MS/Extremity: Negative for injury and deformity, Skin: Negative for injury, rash, and discoloration, Neuro: Negative for headache, weakness, numbness, tingling, and seizure, Psych: Negative for depression, anxiety, suicide ideation, homicidal ideation, and hallucinations, Allergy/Immunology: Negative for hives, rash, and allergies, Endocrine: Negative for neck swelling, polydipsia, polyuria, polyphagia, and marked weight changes, Hematologic/Lymphatic: Negative for swollen nodes, abnormal bleeding, and unusual bruising, 14:10 Respiratory: Positive for cough, wheezing, expiratory, 14:10 MS/extremity: Negative for acute changes, swelling, tenderness, 14:23 MS/extremity: Negative for NO TRAUMA, NO STASIS, NO HCS, bird Exam: 14:12 Constitutional: This is a well developed, well nourished patient who is awake, alert, bird and in no acute distress. Head/Face: Normocephalic, atraumatic. Eyes: Pupils equal round and reactive to light, extra-ocular motions intact. Lids and lashes normal. Conjunctiva and sclera are non-icteric and not injected. Cornea within normal limits. Periorbital areas with no swelling, redness, or edema. ENT: Nares patent. No nasal discharge, no septal abnormalities noted. Tympanic membranes are normal and external auditory canals are clear. Oropharynx with no redness, swelling, or masses, exudates, or evidence of obstruction, uvula midline. Mucous membranes moist. Neck: Trachea midline, no thyromegaly or masses palpated, and no cervical lymphadenopathy. Supple, full range of motion without nuchal rigidity, or vertebral point tenderness. No Meningismus. Chest/axilla: Normal chest wall appearance and motion. Nontender with no deformity. No lesions are appreciated. Cardiovascular: Regular rate and rhythm with a normal S1 and S2. No gallops, murmurs, or rubs. Normal PMI, no JVD. No pulse deficits. Abdomen/GI: Soft, non-tender, with normal bowel sounds. No distension or tympany. No guarding or rebound. No evidence of tenderness throughout. Back: No spinal tenderness. No costovertebral tenderness. Full range of motion. Skin: Warm, dry with normal turgor. Normal color with no rashes, no lesions, and no evidence of cellulitis. MS/ Extremity: Pulses equal, no cyanosis. Neurovascular intact. Full, normal range of motion., bilateral aka Neuro: Awake and alert, GCS 15, oriented to person, place, time, and situation. Cranial nerves II-XII grossly intact. Motor strength 5/5 in all extremities. Sensory grossly intact. Cerebellar exam normal. Normal gait. Psych: Awake, alert, with orientation to person, place and time. Behavior, mood, and affect are within normal limits. 14:12 Respiratory: the patient does not display signs of respiratory distress, Respirations: no acute changes, Breath sounds: bronchial sounds, that are mild, that are moderate, are scattered, decreased breath sounds, that are mild, are located in both bases, rhonchi, that are mild, that are moderate, are scattered, stridor, is not appreciated, + upper airway congestion. Respiratory rate: 18 14:17 Musculoskeletal/extremity: DVT Exam: No signs of deep vein thrombosis. no pain, no bird swelling, no tenderness, negative Homans' sign noted on exam, no appreciated bluish discoloration, no erythema, no increased warmth, Vital Signs: 12:19 BP 132 / 96; Pulse 88; Resp 16; Temp 98.8(O); Pulse Ox 91% on R/A; Weight 158.76 kg; cm10 Height 5 ft. 5 in. ; Pain 8/10; 14:11 BP 134 / 103; Pulse 84; Resp 18; Pulse Ox 100% on Nebulizer Mask; ph 15:15 BP 123 / 78; Pulse 89; Resp 20; Pulse Ox 86% on R/A; ph 15:54 Pulse Ox 96% on Nebulizer Mask; ph 17:00 BP 128 / 78; Pulse 86; Resp 20; Pulse Ox 93% on 3 lpm NC; ph 17:48 BP 132 / 82; Pulse 86; Resp 22; Temp 98.2; Pulse Ox 94% on 3 lpm NC; ph 12:19 Body Mass Index 58.24 (158.76 kg, 165.1 cm) cm10 12:19 Pain Scale: Adult cm10 MDM: 12:01 Medical Screening Exam initiated bird 14:13 Differential diagnosis: Anemia Anxiety Reaction asthma, Bronchitis CHF exacerbation, bird Chronic Obstructive Pulmonary Disease obstructed airway, tracheal injury, bronchitis, flu, URI, pneumonia, Pneumothorax Psychogenic pulmonary edema. Antibiotic administration: The patient is discharged and will get outpatient antibiotics, Amoxicillin, Zithromax. Differential Diagnosis: Obstructed Airway Bronchitis Influenza Upper Respiratory Infection Sinusitis Pharyngitis Allergic Rhinitis Asthma Exacerbation Viral Syndrome Pneumonia Tracheal Injury. Immunization status: Influenza vaccine: within last 5 years. Data reviewed: vital signs, nurses notes, lab test result(s), radiologic studies, plain films. Consideration of Admission/Observation Escalation of care including admission/observation considered. I considered the following discharge prescriptions or medication management in the emergency department Medications were administered in the Emergency Department. See MAR. Independent interpretation of the following test(s) in the Emergency Department X-Ray: My interpretation is CXR REVIEWED. Test considered but Not performed: CT: NO CT CHEST. Historians other than the Patient: FAMILY. Care significantly affected by the following chronic conditions: Hypertension, Obesity. Counseling: I had a detailed discussion with the patient and/or guardian regarding the historical points, exam findings, and any diagnostic results supporting the discharge/admit diagnosis, the presence of at least one elevated blood pressure reading (>120/80) during this emergency department visit, lab results, radiology results, the need for outpatient follow up, for definitive care, a family practitioner. 04/09 12:03 Order name: Flu; Complete Time: 14:08 [facility] 04/09 12:03 Order name: SARS RAPID; Complete Time: 14:08 [facility] 04/09 12:03 Order name: Strep [facility] 04/09 12:28 Order name: CBC with Diff; Complete Time: 14:53 [facility] 04/09 12:28 Order name: Comprehensive Metabolic Panel; Complete Time: 14:53 [facility] 04/09 12:57 Order name: Throat Culture EDAZ 04/09 16:20 Order name: ABG [facility] 04/09 12:03 Order name: Chest Pa And Lat (2 Views) XRAY; Complete Time: 15:42 [facility] 04/09 16:20 Order name: CT Chest For PE Angio [facility] Administered Medications: 12:28 Drug: AZITHromycin PO 500 mg PO once Route: PO; cm10 13:00 Follow up: Response: No adverse reaction ph 14:12 Drug: NS 0.9% IV 1000 ml IV at 1000 ml once; to be given as a bolus over 60 minutes ph Route: IV; Rate: 1000 ml; Site: right antecubital; 15:30 Follow up: Response: No adverse reaction; IV Status: Completed infusion; IV Intake: ph 1000ml 14:12 Not Given (Patient Refused): ondansetron 4 mg IVP once; over 2 minutes ph 14:12 Drug: Levalbuterol Inhalation 2.5 mg Inhalation once Route: Inhalation; ph 14:30 Follow up: Response: No adverse reaction ph 14:12 Drug: Ipratropium Inhalation Aerosol 0.5 mg Inhalation once Route: Inhalation; ph 14:45 Follow up: Response: No adverse reaction ph 14:12 Drug: Decadron - Dexamethasone IVP 10 mg IVP once Route: IVP; Site: right antecubital; ph 14:20 Follow up: Response: No adverse reaction ph 14:57 Drug: Amoxicillin-Clavulanate PO 875 mg PO once Route: PO; ph 16:30 Follow up: Response: No adverse reaction ph 15:55 Drug: Levalbuterol Inhalation 2.5 mg Inhalation once Route: Inhalation; ph 18:02 Follow up: Response: No adverse reaction ph 18:00 Drug: Levalbuterol Inhalation 1.25 mg Inhalation once Route: Inhalation; ph 18:02 Follow up: Response: No adverse reaction ph Disposition Summary: 04/09/24 16:53 Hospitalization Ordered Notes: Hospitalization Status: Observation bird Location: Telemetry/MedSurg (observation)(04/09/24 16:53) bird Condition: Fair(04/09/24 16:53) bird Problem: new(04/09/24 16:53) bird Symptoms: have improved(04/09/24 16:53) bird Bed/Room Type: Standard bird Provider: Denilson Aldrich(04/09/24 16:57) la1 Room Assignment: 204(04/09/24 17:30) bd Diagnosis - Acute upper respiratory infection, unspecified(04/09/24 16:53) bird - Hypoxemia(04/09/24 16:53) bird - Morbid (severe) obesity with alveolar hypoventilation(04/09/24 16:53) bird - Cough(04/09/24 16:53) bird Forms: - Medication Reconciliation Form bird - SBAR form bird - Leadership Thank You Letter bird Signatures: Dispatcher [employer] EDMS Whit Ordonez Corey, MD MD cha Attema, Lee, FNP-C MARKET RESEARCH CONSULTANT-Cla1 Kayla Trimble RN RN ph Lesli Mendoza RN RN cm10 Corrections: (The following items were deleted from the chart) 12:03 12:03 Chest Pa And Lat (2 Views)+RAD.RAD.BRZ ordered. EDMS EDMS 12:03 12:03 Influenza Screen (A \T\ B)+BA.LAB.BRZ ordered. EDMS EDMS 12:03 12:03 SARS-COV-2 Antigen Rapid+I.LAB.BRZ ordered. EDMS EDMS 12:03 12:03 Group A Streptococcus Rapid Sc+BA.LAB.BRZ ordered. EDMS EDMS 12:29 12:29 CBC+H.LAB.BRZ ordered. EDMS EDMS 12:29 12:29 COMPREHENSIVE METABOLIC PANEL+C.LAB.BRZ ordered. EDMS EDMS 16:20 16:20 Chest For PE Angio+CT.RAD.BRZ ordered. EDMS EDMS 16:50 14:18 Home [facility] 16:50 14:18 new [facility] 16:50 14:18 have improved [facility] 16:50 14:18 Fair [facility] 16:50 14:18 Morbid (severe) obesity with alveolar hypoventilation [facility] 16:50 14:18 Acute upper respiratory infection, unspecified [facility] 16:50 14:18 Cough [facility] 16:50 14:18 Hypoxemia [facility] 16:57 16:53 Damon Gordon-Raciel [facility] la1 17:30 16:53 bird
--- NOTE | 2024-04-09 14:19 | ER ---
Nurse's Notes [facility] Name: Jie Gonzalez Age: 53 yrs Sex: Female : 1970 Arrival Date: 04/09/2024 Time: 11:55 Bed 8 Private MD: Diagnosis: Acute upper respiratory infection, unspecified;Hypoxemia;Morbid (severe) obesity with alveolar hypoventilation;Cough Presentation: 04/09 12:19 Chief complaint: Patient states: COUGH, HEADACHE, FEVER, INCREASED FATIGUE ONSET cm10 TUESDAY. Coronavirus screen: Client denies travel out of the [place] in the last 14 days. Ebola Screen: Patient denies travel to an Ebola-affected area in the 21 days before illness onset. No symptoms or risks identified at this time. Initial Sepsis Screen: Does the patient meet any 2 criteria? No. Patient's initial sepsis screen is negative. Does the patient have a suspected source of infection? No. Patient's initial sepsis screen is negative. Risk Assessment: Do you want to hurt yourself or someone else? Patient reports no desire to harm self or others. Onset of symptoms was April 09, 2024. 12:19 Method Of Arrival: Wheelchair cm10 12:19 Acuity: EDITH 4 cm10 Triage Assessment: 12:21 General: Appears in no apparent distress. uncomfortable, Behavior is calm, cooperative. cm10 Neuro: No deficits noted. Level of Consciousness is awake, alert, obeys commands, Oriented to person, place, time, situation, Appropriate for age. Respiratory: No deficits noted. Airway is patent Respiratory effort is even, unlabored, Respiratory pattern is regular, symmetrical. 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 - Infectious Disease History:: Denies. - Social history:: Smoking status: Patient reports the use of cigarette tobacco products, denies chronic smoking, but will smoke occasionally. - Family history:: not pertinent. Screenin:11 [facility] ED Fall Risk Assessment (Adult) History of falling in the last 3 months, ph including since admission No falls in past 3 months (0 pts) Confusion or Disorientation No (0 pts) Intoxicated or Sedated No (0 pts) Impaired Gait No (0 pts) Mobility Assist Device Used No (0 pt) Altered Elimination No (0 pt) Score/Fall Risk Level 0 - 2 = Low Risk Oriented to surroundings, Maintained a safe environment, Hourly rounding (assess needs \T\ fall precautionary measures) done. Abuse screen: Denies threats or abuse. Denies injuries from another. Nutritional screening: No deficits noted. Tuberculosis screening: No symptoms or risk factors identified. Assessment: 13:22 General: Appears in no apparent distress. uncomfortable, Behavior is calm, cooperative, ph Reports chills for fever for. Pain: Complains of pain in head. Neuro: Level of Consciousness is awake, alert, obeys commands, Oriented to person, place, time, situation, Reports headache. Cardiovascular: Capillary refill < 3 seconds in bilateral fingers Patient's skin is warm and dry. Respiratory: Reports cough that is Airway is patent Respiratory effort is even, unlabored, Breath sounds are clear bilaterally. GI: Reports diarrhea, Patient currently denies abdominal pain, vomiting. Derm: Skin is pink, warm \T\ dry. 15:00 Reassessment: Patient appears in no apparent distress at this time. Patient and/or ph family updated on plan of care and expected duration. Pain level reassessed. Room air Spo2 88%, ERP notified and additional nebulizer treatment ordered, see MAR, D/C pending. 16:27 Reassessment: Patient appears in no apparent distress at this time. Patient and/or ph family updated on plan of care and expected duration. Pain level reassessed. Patient is alert, oriented x 3, equal unlabored respirations, skin warm/dry/pink. Pt Spo2 87% RA after multiple neb txs and IV steroids, ERP aware, D/C pending CT scan and ABG resuls. 16:36 Reassessment: RT at bedside for ABG. ph Vital Signs: 12:19 BP 132 / 96; Pulse 88; Resp 16; Temp 98.8(O); Pulse Ox 91% on R/A; Weight 158.76 kg; cm10 Height 5 ft. 5 in. ; Pain 8/10; 14:11 BP 134 / 103; Pulse 84; Resp 18; Pulse Ox 100% on Nebulizer Mask; ph 15:15 BP 123 / 78; Pulse 89; Resp 20; Pulse Ox 86% on R/A; ph 15:54 Pulse Ox 96% on Nebulizer Mask; ph 17:00 BP 128 / 78; Pulse 86; Resp 20; Pulse Ox 93% on 3 lpm NC; ph 17:48 BP 132 / 82; Pulse 86; Resp 22; Temp 98.2; Pulse Ox 94% on 3 lpm NC; ph 12:19 Body Mass Index 58.24 (158.76 kg, 165.1 cm) cm10 12:19 Pain Scale: Adult cm10 ED Course: 12:00 Patient arrived in ED. sj2 12:01 Eric Moss MD is Attending Physician. bird 12:20 Triage completed. cm10 12:20 Arm band placed on left wrist. Patient placed in waiting room. cm10 12:28 Strep Sent. cm10 12:28 SARS RAPID Sent. cm10 12:28 Flu Sent. cm10 12:28 COVID swab sent to lab. Flu and/or RSV swab sent to lab. Strep swab sent to lab. cm10 12:59 Kayla Trimble, RN is Primary Nurse. ph 13:35 Chest Pa And Lat (2 Views) XRAY In Process Unspecified. EDMS 14:10 Initial lab(s) drawn, by me, sent to lab. Inserted saline lock: 22 gauge in right ph antecubital area, using aseptic technique. Blood collected. Flushed with 10 mL NS. 14:11 Patient has correct armband on for positive identification. Bed in low position. Call ph light in reach. Side rails up X 1. Pulse ox on. NIBP on. Door closed. Noise minimized. Warm blanket given. Pillow given. 16:30 No provider procedures requiring assistance completed. ph 16:52 Eliot Gordon is Hospitalizing Provider. bird 16:54 CT Chest For PE Angio In Process Unspecified. EDMS 16:57 Denilson Aldrich is Hospitalizing Provider. la1 17:49 Patient admitted, IV remains in place. ph 19:28 Provided Education on: need for admission. bm8 Administered Medications: 12:28 Drug: AZITHromycin PO 500 mg PO once Route: PO; cm10 13:00 Follow up: Response: No adverse reaction ph 14:12 Drug: NS 0.9% IV 1000 ml IV at 1000 ml once; to be given as a bolus over 60 minutes ph Route: IV; Rate: 1000 ml; Site: right antecubital; 15:30 Follow up: Response: No adverse reaction; IV Status: Completed infusion; IV Intake: ph 1000ml 14:12 Not Given (Patient Refused): ondansetron 4 mg IVP once; over 2 minutes ph 14:12 Drug: Levalbuterol Inhalation 2.5 mg Inhalation once Route: Inhalation; ph 14:30 Follow up: Response: No adverse reaction ph 14:12 Drug: Ipratropium Inhalation Aerosol 0.5 mg Inhalation once Route: Inhalation; ph 14:45 Follow up: Response: No adverse reaction ph 14:12 Drug: Decadron - Dexamethasone IVP 10 mg IVP once Route: IVP; Site: right antecubital; ph 14:20 Follow up: Response: No adverse reaction ph 14:57 Drug: Amoxicillin-Clavulanate PO 875 mg PO once Route: PO; ph 16:30 Follow up: Response: No adverse reaction ph 15:55 Drug: Levalbuterol Inhalation 2.5 mg Inhalation once Route: Inhalation; ph 18:02 Follow up: Response: No adverse reaction ph 18:00 Drug: Levalbuterol Inhalation 1.25 mg Inhalation once Route: Inhalation; ph 18:02 Follow up: Response: No adverse reaction ph Medication: 14:11 VIS not applicable for this client. ph Intake: 15:30 IV: 1000ml; Total: 1000ml. ph Outcome: 14:18 Discharge ordered by . bird 16:53 Decision to Hospitalize by Provider. bird 19:28 Admitted to Med/surg accompanied by nurse, via wheelchair, room 204, bm8 19:28 Condition: stable 19:28 Instructed on the need for admit, Demonstrated understanding of instructions, follow-up care, 19:29 Patient left the ED. bm8 Signatures: Dispatcher [employer] EDMS Eric Moss MD MD cha Attema, Lee, PHYSICS AND ASTRONOMY PROFESSOR-C PHYSICS AND ASTRONOMY PROFESSOR-Cla1 Kayla Trimble, RN RN ph Lesli Mendoza, RN RN cm10 Shalom Mancilla RN RN bm8 Tess Kelly2 Corrections: (The following items were deleted from the chart) 14:58 14:11 BP 134 / 103; Pulse 84bpm; Resp 18bpm; Pulse Ox 100% RA; ph ph
[2024-04-09 14:28] LABS: Albumin 3.5 g/dL (3.4-5.0); Anion Gap 7.7 mEq/L (5.0-15.0); Bilirubin Total 0.5 mg/dL (0.2-1.0); Globulin 3.5 g/dL (2.3-3.5); Potassium 3.7 mEq/L (3.5-5.1)
[2024-04-09] MEDS ORDERED: AMOX/K CLAV 875 MG TAB ONE (14:35)
[2024-04-09] MEDS ORDERED: KETOROLAC 30 MG/ML INJ ONE (14:35)
--- NOTE | 2024-04-09 14:59 | RAD REPORT ---
EXAMINATION: TWO VIEW CHEST XR CLINICAL INDICATION: Female, 53 years old. [facility] MAIN COUGH Bed: TECHNIQUE: 2 view radiographs of the chest were performed. COMPARISON: 07/28/2014 FINDINGS: The lungs are mildly hypoinflated and clear. No pneumothorax or sizable effusion. The heart is normal in size. Mediastinal contours are unremarkable. IMPRESSION: No acute or significant abnormalities.
[2024-04-09 17:20] LABS: Arterial Blood Carboxyhemoglob 0.9 % (0-1.5); Blood Gas Oxyhemoglobin 86.7 % (94-97); Blood Gas THB 16.7 g/dl (12-18); Blood O2 Saturation 88.9 % (92-98.5)
--- NOTE | 2024-04-09 17:27 | P.HP ---
Certification for Inpatient Patient admitted to: Observation With expected LOS: <2 Midnights Patient will require the following post-hospital care: None Practitioner: I am a practitioner with admitting privileges, knowledge of patient current condition, hospital course, and medical plan of care. Services: Services provided to patient in accordance with Admission requirements found in Title 42 Section 412.3 of the Code of Federal Regulations Patient History Date of Service: 04/09/24 History of Present Illness: 53-year-old otherwise healthy female presents emergency department with chief complaint of cough, shortness of breath, chills. She reports she began to feel unwell on the , was having malaise, fatigue and chills throughout the weekend as well as a nonproductive cough. No other family members sick at this time. She was evaluated in the emergency department labs were unremarkable, she is tested negative for COVID, influenza. Initially plan was for discharge and outpatient follow-up but patient became hypoxic despite being treated with steroids, nebulizer treatments. Given her hypoxia she will need to be admitted under observation. She does admit to smoking around 1 pack/week since she was 16 years old, no formal diagnosis of COPD or other lung conditions at this time. Allergies No Known Allergies Allergy (Unverified 04/08/14 17:02) - Past Medical/Surgical History -: None -: Appendectomy -: Hysterectomy Psychosocial/ Personal History: Lives at home with family - Social History Smoking Status: Current every day smoker Counseled patient to stop smoking for: less than 10 minutes Alcohol use: No CD- Drugs: No Caffeine use: Yes Place of Residence: Home Review of Systems 10-point ROS is otherwise unremarkable General: Chills, Weakness, Malaise Respiratory: Cough, Shortness of Breath Physical Examination - Physical Exam General: Alert, In no apparent distress, Oriented x3 HEENT: Atraumatic, PERRLA, Mucous membr. moist/pink Neck: Supple, 2+ carotid pulse no bruit, No LAD Respiratory: Expiratory wheezes Cardiovascular: Regular rate/rhythm, Normal S1 S2 Gastrointestinal: Normal bowel sounds, No tenderness Musculoskeletal: No tenderness Integumentary: No rashes Neurological: Normal speech, Normal strength at 5/5 x4 extr - Studies Laboratory Data (last 24 hrs) 04/09/24 04/09/24 14:05 14:05 WBC 4.40 Hgb 16.4 H Hct 48.7 H Plt Count 199 Sodium 136 Potassium 3.7 BUN 12 Creatinine 0.97 Glucose 106 Total Bilirubin 0.5 AST 39 H ALT 42 Alkaline Phosphatase 65 Microbiology Data (last 24 hrs): 04/09/24 12:27 Nasopharnyx Influenza Type A Antigen Screen - Final 04/09/24 12:27 Nasopharnyx Influenza Type B Antigen Screen - Final 04/09/24 12:27 Throat Group A Streptococcus Rapid Screen - Final Assessment and Plan - Plan Assessment: Acute bronchitis Acute hypoxic respiratory failure Tobacco use disorder Plan: Acute bronchitis Acute hypoxic respiratory failure Continue steroids, Zithromax, pulmonology consult Wean O2 as tolerated Possibly some underlying COPD, will need outpatient follow-up with pulmonology Tobacco use disorder Counseled on importance for cessation Declined NicoDerm patch DVT PPX: Lovenox Code status: Full Discharge Plan: Home Plan to discharge in: 24 Hours - Advance Directives Does patient have a Living Will: No Does patient have a Durable POA for Healthcare: No - Code Status/Comfort Care Code Status Assessed: Yes (Full code) Critical Care: No Time Spent Managing Pts Care (In Minutes): 63
--- NOTE | 2024-04-09 17:41 | RAD REPORT ---
EXAM: CT Chest For Pe Angio TECHNIQUE: CT angiogram of the chest was performed following intravenous contrast administration, inc luding sagittal and coronal as well as maximum intensity projection reformats. One or more of the following dose reduction techniques were used: Automated exposure control, adjustment of the mA and k V according to patient size, and iterative reconstruction. Unless otherwise specified, incidental findings do not require dedicated imaging follow-up. INDICATION: [facility] MAIN Cough;Dyspnea COMPARISON: Chest radiograph of the same day. FINDINGS: LINES/TUBES: None. PULMONARY ARTERIES: Main pulmonary arteries are normal in caliber. No filling defects within the pul monary arteries to suggest pulmonary embolus. LUNGS AND AIRWAYS: The lungs and central airways are normal without focal abnormality. PLEURA: No effusion or pneumothorax. HEART AND MEDIASTINUM: The visualized thyroid gland is normal. No mediastinal, hilar, or axillary lym phadenopathy. Heart is unremarkable. No pericardial effusion. SOFT TISSUES AND BONES: No acute osseous abnormality. No significant soft tissue finding. UPPER ABDOMEN: Unremarkable. IMPRESSION: No evidence of acute central pulmonary emboli. No suspicious intrathoracic findings..
[2024-04-09] MEDS ORDERED: IPRATROPIUM BROM 0.5MG/2.5ML NEB PRN (18:05)
[2024-04-09] MEDS ORDERED: ALBUTEROL 2.5 MG/3 ML NEB SOL NEB PRN (18:05)
[2024-04-09] MEDS: POTASSIUM CL SA 10 MEQ TAB PO ONE (20:09)
[2024-04-09] MEDS: ENOXAPARIN 40 MG/0.4 ML SQ SCH (20:09)
[2024-04-09] MEDS: predniSONE 20 MG TAB PO SCH (20:10)
[2024-04-09] MEDS: BENZONATATE 100 MG CAP PO PRN (20:10)
[2024-04-09 21:30] VITALS: BMI 53.4
[2024-04-09] MEDS: ACETAMINOPHEN 325 MG TABLET PO PRN (22:04)
[2024-04-10 06:17] LABS: Absolute Lymphocytes (CBC) 0.8 K/uL (0.7-4.9); Absolute Monocytes 0.3 K/uL (0.1-1.3); Absolute Neutrophil 3.6 K/uL (1.8-8.0); Basophils % 0.2 % (0-1.3); Hematocrit 46.5 % (36.0-45.0); Hemoglobin 15.8 g/dL (12.0-15.0); Lymphocytes % 16.1 % (15.3-44.8); MCV 94.3 fL (80-100); MPV 9.2 fL (7.6-11.3); Monocytes % 7.2 % (3.3-12.3); Neutrophils % 76.5 % (41.7-73.7); Nucleated Red Blood Cells % 0.1 % (0-0); Platelets 210 thou/uL (152-406); RBC Red Blood Cell Count 4.93 M/uL (3.86-4.86); Red Cell Distribution Width 13.1 % (12.1-15.2)
[2024-04-10 06:23] LABS: Anion Gap 7.2 mEq/L (5.0-15.0); Potassium 4.2 mEq/L (3.5-5.1)
--- NOTE | 2024-04-10 08:31 | P.PN ---
Date of Service: 04/10/24 Subjective: Feeling OK Still with cough, on 02 No acute events overnight ROS: 10 point ROS as noted above, otherwise negative Physical exam GEN: Alert, oriented, NAD HEENT: Normal conjunctiva, sclera anicteric CV: Regular rate and rhythm, no edema Pulm: Nonlabored respirations on NS 02 3LPM ABD: Soft, nontender, nondistended MSK: No joint tenderness Integumentary: No rashes Neuro: Normal speech, normal affect Vitals reviewed Assessment: Acute bronchitis Acute hypoxic respiratory failure Tobacco use disorder Plan: Acute bronchitis Acute hypoxic respiratory failure Continue steroids, Zithromax, pulmonology consult Wean O2 as tolerated Possibly some underlying COPD, will need outpatient follow-up with pulmonology Attempt to wean 02, may need another 1-2 days if unable to get off 02 today Tobacco use disorder Counseled on importance for cessation Declined NicoDerm patch DVT PPX: Lovenox Code status: Full Discharge Plan: Home Plan to discharge in: 24 Hours Time Spent Managing Pts Care (In Minutes): 35
[2024-04-10] MEDS: AMOX/K CLAV 875 MG TAB PO SCH (09:21)
[2024-04-10] MEDS: AZITHROMYCIN IV 500 MG in NA CHLORIDE 0.9% 250 ML IVPB SCH (09:21)
--- NOTE | 2024-04-10 11:57 | P.CNS ---
Date of Consult: 04/10/24 Reason for Consult: COPD exacerbation Chief Complaint: Shortness of breath and cough History of Present Illness: Patient is 53 years of age heavy smoker having some chills feeling very tired no energy tested negative for COVID started complaining of cough congestion chest discomfort and it appeared in the hospital feeling a little better history of obstructive airways disease Allergies No Known Allergies Allergy (Verified 04/09/24 21:19) Home Medications: Multivitamin 1 each PO DAILY 04/09/24 - Past Medical/Surgical History Diabetic: No -: None -: Appendectomy -: Hysterectomy -: knee sx -: foot sx -: tubal ligation Psychosocial/ Personal History: Lives at home with family - Social History Smoking Status: Current some day smoker Alcohol use: No CD- Drugs: No Caffeine use: Yes Place of Residence: Home Review of Systems 10-point ROS is otherwise unremarkable General: Weakness Respiratory: Cough, Shortness of Breath Physical Examination Temp Pulse Resp BP Pulse Ox 97.5 F 77 14 147/79 H 92 04/10/24 08:00 04/10/24 08:00 04/10/24 08:00 04/10/24 08:00 04/10/24 08:00 General: Alert, Oriented x3 Respiratory: Clear to auscultation bilaterally, Diminished Cardiovascular: No edema, Regular rate/rhythm, Normal S1 S2 Gastrointestinal: Normal bowel sounds, Soft and benign Laboratory Data (last 24 hrs) 04/09/24 04/09/24 14:05 14:05 WBC 4.40 Hgb 16.4 H Hct 48.7 H Plt Count 199 Sodium 136 Potassium 3.7 BUN 12 Creatinine 0.97 Glucose 106 Total Bilirubin 0.5 AST 39 H ALT 42 Alkaline Phosphatase 65 - Problems (1) COPD exacerbation Current Visit: Yes Status: Acute Plan: Patient is 53 years of age heavy smoker admitted with worsening cough congestion chest x-ray is clear I suspect that she has underlying obstructive airways disease continue with present treatment changed to p.o. Augmentin with steroids bronchodilators labs chemistries reviewed on admission patient was moderately hypoxic with mild hypercapnia signs and now stable possible discharge on low- dose prednisone 10 mg twice a day for a week with an inhaled bronchodilator follow-up with me in 2 weeks with outpatient workup
[2024-04-10] MEDS: IPRATROPIUM BROM 0.5MG/2.5ML NEB SCH (14:09)
[2024-04-10] MEDS: DULERA 200/5 (MOMETASONE/FORMOTEROL) INHALER IH SCH (20:31)
[2024-04-11 05:20] LABS: Absolute Lymphocytes (CBC) 1.3 K/uL (0.7-4.9); Absolute Monocytes 0.5 K/uL (0.1-1.3); Absolute Neutrophil 6.8 K/uL (1.8-8.0); Basophils % 0.2 % (0-1.3); Hematocrit 44.1 % (36.0-45.0); Hemoglobin 14.9 g/dL (12.0-15.0); Lymphocytes % 14.9 % (15.3-44.8); MCH 31.7 pg (27.0-35.0); MCHC 33.7 g/dL (32.0-36.0); MPV 9.1 fL (7.6-11.3); Monocytes % 5.8 % (3.3-12.3); Neutrophils % 79.1 % (41.7-73.7); Nucleated Red Blood Cells % 0.2 % (0-0); Platelets 210 thou/uL (152-406); RBC Red Blood Cell Count 4.69 M/uL (3.86-4.86); Red Cell Distribution Width 13.2 % (12.1-15.2)
[2024-04-11 05:30] LABS: Anion Gap 6.3 mEq/L (5.0-15.0); Potassium 4.3 mEq/L (3.5-5.1)
--- NOTE | 2024-04-11 09:16 | P.PN ---
Date of Service: 04/11/24 Subjective: Feeling OK Still with cough, requiring 02 No acute events overnight ROS: 10 point ROS as noted above, otherwise negative Physical exam GEN: Alert, oriented, NAD HEENT: Normal conjunctiva, sclera anicteric CV: Regular rate and rhythm, no edema Pulm: Nonlabored respirations on NS 02 3LPM ABD: Soft, nontender, nondistended MSK: No joint tenderness Integumentary: No rashes Neuro: Normal speech, normal affect Vitals reviewed Assessment: Acute bronchitis Acute hypoxic respiratory failure Tobacco use disorder Plan: Acute bronchitis Acute hypoxic respiratory failure Continue steroids, Augmentin, pulmonology consult, inhalers Wean O2 as tolerated Likely some underlying COPD, will need outpatient follow-up with pulmonology Attempt to wean 02 Was ok on room air most of the yesterday but ambulating to restroom dropped to 87% Tobacco use disorder Counseled on importance for cessation Declined NicoDerm patch DVT PPX: Lovenox Code status: Full Discharge Plan: Home Plan to discharge in: 24 Hours Time Spent Managing Pts Care (In Minutes): 35
[2024-04-12 04:02] VITALS: O2SAT 93
[2024-04-12 05:44] LABS: Absolute Lymphocytes (CBC) 1.6 K/uL (0.7-4.9); Absolute Monocytes 0.4 K/uL (0.1-1.3); Absolute Neutrophil 6.3 K/uL (1.8-8.0); Basophils % 0.3 % (0-1.3); Hematocrit 44.4 % (36.0-45.0); Hemoglobin 15.2 g/dL (12.0-15.0); MCH 32.2 pg (27.0-35.0); MCHC 34.2 g/dL (32.0-36.0); MPV 8.8 fL (7.6-11.3); Monocytes % 5.3 % (3.3-12.3); Neutrophils % 75.4 % (41.7-73.7); Nucleated Red Blood Cells % 0.1 % (0-0); Platelets 223 thou/uL (152-406); RBC Red Blood Cell Count 4.73 M/uL (3.86-4.86); Red Cell Distribution Width 13.3 % (12.1-15.2)
[2024-04-12 05:57] LABS: Anion Gap 8.2 mEq/L (5.0-15.0); Potassium 4.2 mEq/L (3.5-5.1)
[2024-04-12 08:18] VITALS: BP 120/73; TEMP 97.9
--- NOTE | 2024-04-12 09:31 | P.DS ---
Admission Date: 04/10/24 Discharge Date: 04/12/24 Disposition: ROUTINE DISCHARGE Discharge Condition: GOOD Reason for Admission: Shortness of breath and cough Brief History of Present Illness: Diagnosis Acute bronchitis Acute hypoxic respiratory failure Tobacco use disorder HPI 04/09/24 Jie Gonzalez is a 53-year-old otherwise healthy female presents emergency department with chief complaint of cough, shortness of breath, chills. She reports she began to feel unwell on the , was having malaise, fatigue and chills throughout the weekend as well as a nonproductive cough. No other family members sick at this time. She was evaluated in the emergency department labs were unremarkable, she is tested negative for COVID, influenza. Initially plan was for discharge and outpatient follow-up but patient became hypoxic despite being treated with steroids, nebulizer treatments. Given her hypoxia she will need to be admitted under observation. She does admit to smoking around 1 pack/week since she was 16 years old, no formal diagnosis of COPD or other lung conditions at this time. Hospital Course: Jie Gonzalez is a pleasant 53 year old female with a past medical history significant for Smoking abuse who was admitted to the [facility] on 04/09/24 for acute bronchitis. Jie with a history of smoking abuse and presents to the ED with worsening cough. Chest xray is clear. She tolerated steroids and zythromax. Dr. Nguyen consulted recommending steroids outpatient. On 04/11, Jie successfully ambulated on RA with saturation of 90-93%. On 04/12/24, Jie was seen on morning rounds and deemed medically stable for discharge. Jie was discharged with instructions to schedule follow-up appointments with PCP and Dr. Nguyen. Jie was provided prescriptions for tessalon perle, augmentin, dulera, and prednisone. Physical exam GEN: Alert and oriented x2, NAD HEENT: Normal conjunctiva, sclera anicteric CV: RRR, no edema Pulm: Nonlabored respirations, Clear BBS, on room air ABD: Soft on palpation, ND/NT, active bowel sounds MSK: No joint tenderness Integumentary: No rashes Neuro: Normal speech, normal affect Vital Signs/Physical Exam: Temp Pulse Resp BP Pulse Ox 97.9 F 71 17 120/73 94 04/12/24 08:00 04/12/24 08:00 04/12/24 08:00 04/12/24 08:00 04/12/24 08:00 Laboratory Data at Discharge: WBC 8.40 thou/uL (4.3-10.9) 04/12/24 05:15 Hgb 15.2 g/dL (12.0-15.0) H 04/12/24 05:15 Hct 44.4 % (36.0-45.0) 04/12/24 05:15 Plt Count 223 thou/uL (152-406) 04/12/24 05:15 Sodium 139 mEq/L (136-145) 04/12/24 05:15 Potassium 4.2 mEq/L (3.5-5.1) 04/12/24 05:15 BUN 15 mg/dL (7-18) 04/12/24 05:15 Creatinine 0.74 mg/dL (0.55-1.02) 04/12/24 05:15 Glucose 137 mg/dL (74-106) H 04/12/24 05:15 Total Bilirubin 0.5 mg/dL (0.2-1.0) 04/09/24 14:05 AST 39 U/L (15-37) H 04/09/24 14:05 ALT 42 U/L (13-56) 04/09/24 14:05 Alkaline Phosphatase 65 U/L (45-117) 04/09/24 14:05 Home Medications: Multivitamin 1 each PO DAILY 04/09/24 Albuterol Inhaler [Ventolin Inhaler*] 2 puff IH Q6H PRN #2 inh 04/11/24 Amox/Clavulanate [Augmentin 875-125 Tab] 875 mg PO BID 5 Days #10 tab 04/11/24 Benzonatate [Tessalon Perle] 100 mg PO TID PRN #25 cap 04/11/24 Mometasone/Formoterol [Dulera 200 Mcg/5 Mcg Inhaler] 2 puff IH BID #1 inh 04/11/24 predniSONE [Deltasone*] 10 mg PO BID 7 Days #14 tab 04/11/24 New Medications: Amox/Clavulanate [Augmentin 875-125 Tab] 875 mg PO BID 5 Days #10 tab predniSONE [Deltasone*] 10 mg PO BID 7 Days #14 tab Mometasone/Formoterol [Dulera 200 Mcg/5 Mcg Inhaler] 2 puff IH BID #1 inh Benzonatate [Tessalon Perle] 100 mg PO TID PRN #25 cap PRN Reason: Cough Albuterol Inhaler [Ventolin Inhaler*] 2 puff IH Q6H PRN #2 inh PRN Reason: Shortness Of Breath Physician Discharge Instructions: 1. Please call and schedule a follow-up appointment with your PCP in 3-5 days - Please follow-up with your PCP for medication refills/adjustments 2. Please call and schedule a follow-up appointment with Dr. Nguyen in 3-5 days -follow up and continued medication management 3. Continue regular diet 4. activity restrictions, ambulate and use incentive spirometer for lung expansion 5. Return to the ED if symptoms worsen New medications tessalon Perle 100 mg three times daily as needed -For cough Augmentin 875 mg twice daily x 5 days Dulera inhaler- 2 puffs twice daily prednisone 10 mg twice daily x 7 days Diet: Regular Activity: Ad jarvis Followup: Nico Nguyen MD [ACTIVE - CAN ADMIT] - 1-2 Weeks Liliana Jones FNP [Primary Care Provider] - 1-2 Weeks
== END 2024-04-12 10:35 | disposition home or self-care (01) | DRG 189 ==
LOC: ER 11:55 → ERHOLD 17:11 → 2ND 17:46 → OBSVTOIN 04-10 17:39 → INTOOBSV 04-10 17:39
PROVIDERS: ADMIT Internal Medicine; ATTEND Hospitalist
PROC: 4A033R1 Measurement of Arterial Saturation, Peripheral, Percutaneous Approach (ICD-10-PCS; principal; 2024-04-09)
DX: J96.01 Acute respiratory failure with hypoxia (principal); E66.2 Morbid (severe) obesity with alveolar hypoventilation; Z68.43 Body mass index [BMI] 50.0-59.9, adult; J44.1 Chronic obstructive pulmonary disease with (acute) exacerbation; J44.0 Chronic obstructive pulmonary disease with (acute) lower respiratory infection; J20.9 Acute bronchitis, unspecified; J96.02 Acute respiratory failure with hypercapnia; I10 Essential (primary) hypertension; F17.210 Nicotine dependence, cigarettes, uncomplicated; Z71.6 Tobacco abuse counseling; Z11.52 Encounter for screening for COVID-19; Z90.49 Acquired absence of other specified parts of digestive tract; Z90.710 Acquired absence of both cervix and uterus
CPT/HCPCS: 36415; 36600; 71046; 71275; 80048; 80053; 82805; 84145; 85025; 87070; 87081; 87804; 87811; 94640; 96361; 96374; 99285; G0378; J1100; J1650; J2405; J3535; J7030; J7050; J7512; J7614; J7644; Q9967